=== PATIENT | female | born 1995 | race American Indian/Alaskan Native ===

== ENCOUNTER 2017-01-29 14:37 | Emergency (ER) | payer SELFPAY ==
[2017-01-29 22:18] LABS: Bilirubin,Urine NEG (Negative); Blood,Urine SM (Negative); Ketones,Urine NEG (Negative); Leukocyte Esterase,Urine NEG (Negative); Mucus,Urine FEW /HPF; Nitrite,Urine NEG (Negative); Protein,Urine <15 mg/dL mg/dL (Negative); RBC,Urine < 1.0 /HPF (0.0-6.0); Urobilinogen,Urine < 2.0 mg/dL (<2.0)
[2017-01-29] MEDS ORDERED: FLEXERIL PO ONE (22:48)
--- NOTE | 2017-01-29 22:55 | Emergency Department Report ---
Entered by HUEY RICK, acting as scribe for SINA CARTWRIGHT PA. ED Back Pain/Injury HPI - General Chief Complaint: Back Pain/Injury Stated Complaint: BACK PAIN Source: patient Limitations: No Limitations - History of Present Illness Initial Comments: 21 year old female presents to the ED for evaluation of low back pain that began today at approximately 12:50. 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 She describes her pain as constant and worsens with movement. She also reports a tingling sensation radiating from her right low back to her right upper leg that stops above the knee. Denies urinary symptoms, abdominal pain, nausea, vomiting. LMP 11/29/2016 but notes baseline irregular menses. MD Complaint: back pain (low back) -: This afternoon Time: 12:50 Place: work Radiation: right leg (tingling sensation to upper leg above knee) Severity scale (0 -10): 10 Consistency: constant Improves With: none Worsens With: movement Context: while lifting (heavy pots and pans) Associated Symptoms: denies: fever/chills, abdominal pain, nausea/vomiting, other (urinary symptoms, vaginal discharge, vaginal bleeding) Treatments Prior to Arrival: other (none) - Related Data Previous Rx's Medication Instructions Recorded Last Taken Type Dicyclomine [Bentyl] 10 mg PO QID PRN #20 capsule 07/19/16 Unknown Rx Famotidine [Pepcid] 20 mg PO QDAY #30 tablet 07/19/16 Unknown Rx Ketorolac [Toradol] 10 mg PO Q6H PRN #20 tablet 07/19/16 Unknown Rx Ondansetron [Zofran Odt] 4 mg PO QID PRN #20 tab.rapdis 07/19/16 Unknown Rx Ibuprofen [Motrin] 600 mg PO Q8H PRN #20 tablet 01/29/17 Unknown Rx methOCARBAMOL [Robaxin TAB] 500 mg PO BID PRN #20 tab 01/29/17 Unknown Rx traMADol [Ultram 50 MG tab] 50 mg PO Q6HR PRN #14 tablet 01/29/17 Unknown Rx Allergies Allergy/AdvReac Type Severity Reaction Status Date / Time Chocolate Allergy Angioedema Uncoded 01/29/17 15:38 Peanuts Allergy Angioedema Uncoded 01/29/17 15:38 ED Review of Systems Comment: All other systems reviewed and negative Constitutional: denies: chills, fever Gastrointestinal: denies: abdominal pain, nausea, vomiting, diarrhea Genitourinary: abnormal menses (baseline irregular menses. LNMP 11/29/2016.). denies: urgency, dysuria, frequency, hematuria, discharge Musculoskeletal: back pain (bilateral low back pain), other (tingling to left upper leg above knee) ED Past Medical Hx - Past Medical History Previous Medical History?: Yes Additional medical history: Bronchitis - Surgical History Past Surgical History?: No - Social History Smoking Status: Never Smoker Substance Use Type: None - Medications Home Medications: Home Medications Medication Instructions Recorded Confirmed Last Taken Type Dicyclomine [Bentyl] 10 mg PO QID PRN #20 capsule 07/19/16 Unknown Rx Famotidine [Pepcid] 20 mg PO QDAY #30 tablet 07/19/16 Unknown Rx Ketorolac [Toradol] 10 mg PO Q6H PRN #20 tablet 07/19/16 Unknown Rx Ondansetron [Zofran Odt] 4 mg PO QID PRN #20 tab.rapdis 07/19/16 Unknown Rx Ibuprofen [Motrin] 600 mg PO Q8H PRN #20 tablet 01/29/17 Unknown Rx methOCARBAMOL [Robaxin TAB] 500 mg PO BID PRN #20 tab 01/29/17 Unknown Rx traMADol [Ultram 50 MG tab] 50 mg PO Q6HR PRN #14 tablet 01/29/17 Unknown Rx ED Physical Exam - General Limitations: No Limitations General appearance: alert, in no apparent distress - Head Head exam: Present: atraumatic, normocephalic - Eye Eye exam: Present: PERRL, EOMI - Neck Neck exam: Present: normal inspection, full ROM - Respiratory Respiratory exam: Present: normal lung sounds bilaterally. Absent: respiratory distress, wheezes, rales, rhonchi - Cardiovascular Cardiovascular Exam: Present: regular rate, normal rhythm, normal heart sounds. Absent: systolic murmur, diastolic murmur, rubs, gallop - GI/Abdominal GI/Abdominal exam: Present: soft. Absent: distended, tenderness, guarding, rebound - Extremities Exam Extremities exam: Absent: other (no gluteal tenderness or pain with palpation) - Back Exam Back exam: Present: paraspinal tenderness (bilateral paraspinal lumbar tenderness, left side worse than right). Absent: full ROM (limited due to pain) , CVA tenderness (R), CVA tenderness (L), vertebral tenderness - Neurological Exam Neurological exam: Present: alert, oriented X3. Absent: normal gait (antalgic gait) - Psychiatric Psychiatric exam: Present: normal affect, normal mood - Skin Skin exam: Present: warm, dry, intact. Absent: rash ED Course Vital Signs 01/29/17 01/29/17 15:39 18:20 Temperature 98.1 F 98.7 F Pulse Rate 74 82 Respiratory 20 18 Rate Blood Pressure 136/85 Blood Pressure 120/83 [Right] O2 Sat by Pulse 99 100 Oximetry - Reevaluation(s) Reevaluation #1: 01/29/17 22:51 Medicated with flexeril 10 ED Medical Decision Making - Medical Decision Making Discussed results with patient; found small hematuria, told her most likely incidental finding and don't suspect kidney stone due to acute injury, lack of CVA tenderness and musculoskeletal-type pain, but told her to return to ED if notices any kidney stone sxs; gave ortho referral, told her to avoid heavy lifting for the next week, follow up if pain doesn't improve, she verbalized understanding ED Disposition Clinical Impression: Muscle spasm of back, Hematuria Low back strain Qualifiers: Encounter type: initial encounter Qualified Code(s): S39.012A - Strain of muscle, fascia and tendon of lower back, initial encounter Disposition: DISCHARGED TO HOME OR SELFCARE Is pt being admited?: No Does the pt Need Aspirin: No Condition: Stable Instructions: Muscle Strain (ED), Muscle Spasm (ED), Acute Hematuria (ED) Prescriptions: Ibuprofen [Motrin] 600 mg PO Q8H PRN #20 tablet PRN Reason: Pain methOCARBAMOL [Robaxin TAB] 500 mg PO BID PRN #20 tab PRN Reason: Muscle Spasm traMADol [Ultram 50 MG tab] 50 mg PO Q6HR PRN #14 tablet PRN Reason: Pain Referrals: ALEC BLOUNT MD [Staff Physician] - 3-5 Days GILMER BISHOP MD [Staff Physician] - 3-5 Days Forms: Work/School Release Form(ED) Time of Disposition: 22:43 Print Language: ARABIC This documentation as recorded by the scribePRABHJOT REBEKAH,accurately reflects the service I personally performed and the decisions made by me,GABBIE,YENI FRANKEL.
[2017-01-29 22:59] VITALS: BP 118/80
== END 2017-01-29 23:00 | disposition home or self-care (01) ==
LOC: ED 14:37
DX: S39.012A Strain of muscle, fascia and tendon of lower back, initial encounter (principal); M62.830 Muscle spasm of back; R31.9 Hematuria, unspecified; X58.XXXA Exposure to other specified factors, initial encounter; Y93.9 Activity, unspecified; Y92.9 Unspecified place or not applicable; Y99.9 Unspecified external cause status
CPT/HCPCS: 81001; 81025; 99283

== ENCOUNTER 2019-12-31 14:22 | Emergency (ER) | payer SELFPAY ==
--- NOTE | 2019-12-31 16:07 | Emergency Department Report ---
Chief Complaint: Back Pain/Injury Stated Complaint: ANKLE PAIN EXTREME/JOINT PAIN Time Seen by Provider: 12/31/19 15:45 - HPI History of Present Illness: Patient is a 24-year-old female presents the emergency room with complaints of bilateral ankle pain that began yesterday. She states that the pain radiates up her legs. She denies any fall, injury, numbness, weakness, leg swelling. She states that she stands on her legs for long periods of time. She did not take anything for her discomfort. She denies any past medical history allergies to medications. VSS. on exam: Full range of motion of the bilateral ankles, bilateral feet, bilateral toes, no joint laxity, no bony tenderness to palpation, no edema, no ecchymosis, no deformity, neurovascularly intact, Achilles tendon is intact bilaterally Patient has had no acute traumatic injury There is no swelling of the legs to suggest DVT There are no signs of infection to suggest septic joint Patient is presenting with a nonmedical emergency at this time, medical screening examination performed and there is no threat to life or limb at this time Patient will be referred to an orthopedic doctor Discussed symptomatic treatment at home Discussed strict return precautions - Exam Vital Signs: Vital Signs 12/31/19 14:24 Temperature 98.0 F Pulse Rate 94 H Respiratory 18 Rate Blood Pressure 144/82 O2 Sat by Pulse 99 Oximetry MSE screening note: Focused history and physical exam performed. ED Disposition for MSE Clinical Impression: Bilateral ankle pain Qualifiers: Chronicity: acute Qualified Code(s): M25.571 - Pain in right ankle and joints of right foot Disposition: Z-07 MED SCREENING EXAM-LEFT Is pt being admited?: No Does the pt Need Aspirin: No Condition: Stable Instructions: Arthralgia (ED), RICE Therapy (ED) Additional Instructions: May alternate Tylenol or ibuprofen as needed for discomfort. May use ice for 15 minutes at a time, elevation of the legs. May incorporate daily exercise such as walking or riding the bike. Follow-up with orthopedic doctor. Return to the emergency room for any new or worsening symptoms. Referrals: [facility] [Provider Group] - 3-5 Days Time of Disposition: 16:06 Print Language: SAUDI ARABIAN
[2019-12-31 16:33] VITALS: BP 140/80
== END 2019-12-31 16:24 | disposition left against medical advice (07) ==
LOC: ED 14:22
DX: M25.572 Pain in left ankle and joints of left foot (principal); M25.571 Pain in right ankle and joints of right foot
CPT/HCPCS: 99282